=== PATIENT | male | born 1955 | race Caucasian/White ===

== ENCOUNTER → 2018-08-08 09:54 | Outpatient (CLI) | payer OTHER, SELFPAY | PROVIDERS: Family Provider Internal Medicine; PCP Internal Medicine; Visit Provider Urology | DX: N40.0 Benign prostatic hyperplasia without lower urinary tract symptoms (principal) | CPT/HCPCS: 36415; 84153 ==

== ENCOUNTER → 2019-04-21 13:07 | Outpatient (CLI) | payer OTHER, SELFPAY ==
--- NOTE | 2019-04-21 13:09 | DI.US.S_ITS ---
PROCEDURE: US ABDOMEN LIMITED INDICATIONS: Abdominal mass TECHNIQUE: Real-time focused scanning was performed of the abdomen, with image documentation. COMPARISON: None. FINDINGS: Sonographically, no discrete mass is seen. The palpable abnormality appears to correspond to prominent left anterior rib end which is more anterior in position compared to the contralateral non-symptomatic side. Depending on level of clinical suspicion, further assessment with CT could be considered. No focal fluid collection seen. IMPRESSION: No discrete sonographic mass identified. Probable abnormality may correspond to prominent rib. Recommend clinical correlation Dictated by: Catrachito Asher M.D. on 04/21/2019 at 14:28 Approved by: Catrachito Asher M.D. on 04/21/2019 at 14:32
== END ==
PROVIDERS: Family Provider Internal Medicine; PCP Internal Medicine; Visit Provider Registered Nurse
DX: R19.04 Left lower quadrant abdominal swelling, mass and lump (principal)
CPT/HCPCS: 76705

== ENCOUNTER → 2019-08-08 08:16 | Outpatient (CLI) | payer OTHER, SELFPAY ==
[2019-08-08 09:45] LABS: Prostate Specific Antigen 1.73 ng/mL (0.10-4.00)
== END ==
PROVIDERS: Family Provider Internal Medicine; PCP Internal Medicine; Visit Provider Urology
DX: N40.0 Benign prostatic hyperplasia without lower urinary tract symptoms (principal)
CPT/HCPCS: 84153

== ENCOUNTER → 2019-12-05 07:25 | Outpatient (CLI) | payer OTHER, SELFPAY ==
[2019-12-05 08:25] LABS: Alanine Aminotransferase 26 IU/L (<50); Albumin 4.4 g/dL (3.5-5.0); Albumin Globulin Ratio 1.5 (1.0-2.8); Alkaline Phosphatase 53 U/L (38-126); Aspartate Aminotransferase 35 IU/L (17-59); Bilirubin Total 1.3 mg/dL (0.2-1.3); Blood Urea Nitrogen 20 mg/dL (9-20); Calcium 9.7 mg/dL (8.4-10.2); Carbon Dioxide 30 mmol/L (22-32); Chloride 100 mmol/L (98-107); Cholesterol 209 mg/dL (140-199); Estimated Glomerular Filt Rate > 60.0 mL/min (>60); Globulin 2.9 g/dL (1.7-4.1); Glucose 92 mg/dL (80-110); HDL Cholesterol 72 mg/dL (40-60); HEMOLYSIS < 15 (0-50); LDL Cholesterol Calculated 118 mg/dL (<100); Potassium 4.7 mmol/L (3.4-5.1); Sodium 137 mmol/L (137-145); Total Protein 7.3 g/dL (6.3-8.2); Triglycerides 96 mg/dL (35-150)
== END ==
PROVIDERS: PCP Internal Medicine; Visit Provider Internal Medicine
DX: E78.5 Hyperlipidemia, unspecified (principal); Z13.1 Encounter for screening for diabetes mellitus; Z13.220 Encounter for screening for lipoid disorders; Z13.6 Encounter for screening for cardiovascular disorders
CPT/HCPCS: 36415; 80053; 80061

== ENCOUNTER 2020-06-05 12:17 | Emergency (ER) | payer OTHER, SELFPAY ==
[2020-06-05] VITALS (10 sets, daily range): BP systolic 137–205; BP diastolic 79–107; PULSE 66–89; RESP 16–31; TEMP 36.6; O2SAT 96–100; BMI 23.4
--- NOTE | 2020-06-05 12:33 | DI.RAD.S_ITS ---
PROCEDURE: XR CHEST 1V INDICATIONS: chest pain TECHNIQUE: One view of the chest was acquired. COMPARISON: [facility], CHEST 1 VIEW, 07/07/2009, 10:52. [facility], CHEST 2 VIEW, 06/27/2011, 17:06. FINDINGS: Surgical changes and devices: None. Lungs and pleura: Lungs are clear. No pleural effusions or pneumothorax. Interstitial prominence is seen. Low lung volumes are noted. This causes a crowded appearance to the lung markings and limits evaluation. Mediastinum: The cardiac contours are within normal limits. The aorta demonstrates calcification and tortuosity. Bones and chest wall: No suspicious bony lesions. Age-appropriate bony degenerative changes are seen. Overlying soft tissues appear unremarkable. IMPRESSION: Interstitial prominence is seen throughout. The interstitial prominence is nonspecific, yet may be related to pulmonary edema. Differential diagnosis also includes artifact from incomplete inspiratory result. Dictated by: Avinash Burciaga M.D. on 06/05/2020 at 12:32 Approved by: Avinash Burciaga M.D. on 06/05/2020 at 12:33
[2020-06-05 12:45] LABS: Add Manual Diff / Slide Review NO; Basophils Absolute Auto 0 /uL (0-100); Basophils Percent Auto 0.6 % (0-2); Eosinophils Absolute Auto 300 /uL (0-450); Eosinophils Percent Auto 5.2 % (2-4); Hematocrit 43.8 % (41-53); Hemoglobin 14.8 g/dL (13.5-17.5); Lymphocytes Absolute Auto 1800 /uL (1100-4500); Lymphocytes Percent Auto 30.6 % (25-40); Mean Corpuscular HGB Conc 33.8 % (30-36); Mean Corpuscular Hemoglobin 31.2 PG (26-34); Mean Corpuscular Volume 92.3 fL (80-100); Monocytes Absolute Auto 500 /uL (0-900); Monocytes Percent Auto 9.1 % (3-14); Neutrophils Absolute Auto 3300 /uL (1500-7000); Neutrophils Percent Auto 54.5 % (50-75); Platelet Count 230 X10^3/uL (150-400); Red Blood Cell Count 4.75 X10^6/uL (4.5-5.9); Red Cell Distribution Width 13.5 % (11.6-14.8)
[2020-06-05 12:47] LABS: Prothrombin Time 11.1 SECONDS (10.1-12.7)
[2020-06-05 12:49] LABS: PTT Partial Thromboplastin Tim 32 SECONDS (26.4-36.2)
[2020-06-05 12:51] LABS: Alanine Aminotransferase 26 IU/L (<50); Albumin 4.7 g/dL (3.5-5.0); Albumin Globulin Ratio 1.5 (1.0-2.8); Alkaline Phosphatase 56 U/L (38-126); Aspartate Aminotransferase 42 IU/L (17-59); Bilirubin Total 2.1 mg/dL (0.2-1.3); Blood Urea Nitrogen 17 mg/dL (9-20); Calcium 10.1 mg/dL (8.4-10.2); Carbon Dioxide 31 mmol/L (22-32); Chloride 104 mmol/L (98-107); Creatine Kinase 260 U/L (55-170); Estimated Glomerular Filt Rate > 60.0 mL/min (>60); Globulin 3.1 g/dL (1.7-4.1); Glucose 134 mg/dL (80-110); HEMOLYSIS < 15 (0-50); Lipase 107 U/L (23-300); Potassium 4.3 mmol/L (3.4-5.1); Sodium 140 mmol/L (137-145); Total Protein 7.8 g/dL (6.3-8.2)
--- NOTE | 2020-06-05 12:57 | PC.NURSE ---
States he has never had htn. Runs/ swims frequently. Denies headache, neuro changes, visual changes as well as s/s of stroke. BEFAST negative. Moving all extremities equally well. [place]/warm/dry.
[2020-06-05 13:03] LABS: Troponin I < 0.012 ng/mL (0.01-0.034)
[2020-06-05 13:06] LABS: CKMB % Relative Index 1.8 % (1.5-5.0)
--- NOTE | 2020-06-05 14:18 | ED_ITS ---
HPI - General Adult <MCKENZIE Tillman-BC - Last Filed: 06/05/20 14:55> General Chief complaint: Hypertension Stated complaint: High Blood Pressure and Irregular Heart Rate Time Seen by Provider: 06/05/20 12:45 Source: patient Mode of arrival: Ambulatory Limitations: no limitations History of Present Illness HPI narrative: The patient is delightful 64-year-old male nonsmoker with history of GERD who presents with a chief complaint of high blood pressure and irregular heart rate at home. He states he went for his normal 3 mild dog this morning, then wanted to check his blood pressure for monitoring reasons. This is the 1st time he checked his blood pressure at home with a new blood pressure cuff, which she used on his wrist. He denies any chest pain, shortness of breath, cough c ongestion lightheadedness dizziness. He states that overall he feels very well, has no physical complaints. He presents to the emergency department because his home monitor symptoms blood pressure was over 200 systolic. At also said that he has an irregular heart rhythm. He denies any fluttering in his chest, palpitations, swelling of his extremities. He states he is only here to ?be cautious? because of what is home monitor said. He denies any cardiac history, any blood pressure issues, and states overall he feels very well. Related Data Home Medications Medication Instructions Recorded Confirmed No Known Home Medications 06/05/20 06/05/20 Allergies Allergy/AdvReac Type Severity Reaction Status Date / Time Penicillins Allergy Mild BILATERAL Verified 06/05/20 12:40 FEET/HAND SWELLING Review of Systems <MELISSA Tillman - Last Filed: 06/05/20 14:55> Review of Systems Narrative: GENERAL: Denies chills, fatigue, malaise, fever, sweats. HEENT: Denies sinus pain, ear pain, sore throat, difficulty swallowing, dizziness. RESPIRATORY: Denies dyspnea, cough, wheezing, hemoptysis, sputum. CARDIOVASCULAR: See HPI GASTROINTESTINAL: Denies nausea, vomiting, abdominal pain, diarrhea, constipation, melena. : Denies dysuria, frequency, incontinence, hematuria, urinary retention. MUSCULOSKELETAL: denies weakness, joint pain, or bony pain SKIN: Denies rash, skin lesions, or other NEUROLOGIC: Denies weakness, headache, numbness, change in speech, confusion, seizures, incoordination. PSYCHIATRIC: No concerning psychosocial issues. 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) URI (upper respiratory infection) (Acute) Surgical History Status post arthroscopy Status post hernia repair Family History Father Heart disease Hypertension High cholesterol Grandfather Mental health problem Grandmother Colon cancer Mother Age: 90 Diabetes mellitus Heart disease Hypertension High cholesterol Mental health problem Stroke Grandfather Heart disease Grandmother Stroke Social History marital status: number of children: 3 household members: spouse lives independently: Yes caregiver/support person: No housing: house pets and animals: Yes education level: master's degree occupational status: employed current occupational exposures/hazards: No travel history: recent leisure activities: exercise, music, games, reading, volunteer work and other Smoking Status: Never smoker Tobacco: How many years used: 0 second hand exposure: Yes (18 years in the past) alcohol intake: current substance use type: does not use Smoking Status: Never smoker alcohol intake frequency: 0-2 drinks per day Substance Use Type: does not use Exam <PALOMO Tillman - Last Filed: 06/05/20 14:55> Narrative Exam Narrative: GENERAL: This is a well-nourished, well-developed patient, in no acute distress. HEAD: Atraumatic. Normocephalic. No temporal or scalp tenderness. EYES: Pupils equal round and reactive. Extraocular motions intact. No scleral icterus. No injection or drainage. ENT: Nose without bleeding, purulent drainage or septal hematoma. Throat without erythema, tonsillar hypertrophy or exudate. Uvula midline. Airway patent. NECK: Trachea midline. No JVD or lymphadenopathy. Supple, nontender, no meningeal signs. CARDIOVASCULAR: Regular rate and rhythm RESPIRATORY: Clear to auscultation. Breath sounds equal bilaterally. No wheezes, rales, or rhonchi. No cough. No increased respiratory effort. No accessory muscle use. GASTROINTESTINAL: Abdomen soft, non-tender, nondistended. No hepato- splenomegaly, or palpable masses. No guarding. EXTREMITIES: No clubbing, cyanosis, or edema. No joint tenderness, effusion, or edema noted. BACK: Nontender without deformity or crepitance. No flank tenderness. NEURO: AOx3. SKIN: No rash or erythema on visible skin Initial Vital Signs Initial Vital Signs: Vital Signs Temperature 98 F 06/05/20 12:20 Pulse Rate 66 06/05/20 12:20 Respiratory Rate 16 06/05/20 12:20 Blood Pressure 205/107 H 06/05/20 12:20 Pulse Oximetry 100 06/05/20 12:20 <Jorge Julian MD - Last Filed: 06/06/20 19:20> Initial Vital Signs Initial Vital Signs: Vital Signs Temperature 98 F 06/05/20 12:20 Pulse Rate 66 06/05/20 12:20 Respiratory Rate 16 06/05/20 12:20 Blood Pressure 205/107 H 06/05/20 12:20 Pulse Oximetry 100 06/05/20 12:20 Scores <PALOMO Tillman - Last Filed: 06/05/20 14:55> GCS [place] coma scale eye opening: Spontaneous [place] coma scale verbal response: Orientated Ct coma scale motor response: Obey commands [place] coma scale total score: 15 Course <PALOMO Tillman - Last Filed: 06/05/20 14:55> Orders Ordered: ED Orders 06/05/20 12:30 Complete Blood Count AUTO DIFF Stat Comprehensive Metabolic Panel Stat Lipase Stat Partial Thromboplastin Time Stat Prothrombin Time INR Stat Troponin & CK Cardiac Panel Stat 06/05/20 12:33 XR chest 1V Stat EKG-12 Lead Stat Vital Signs Vital signs: Vital Signs - 8 hr 06/05/20 12:20 06/05/20 12:27 06/05/20 12:30 Temperature 98 F Pulse Rate 66 89 84 Respiratory Rate 16 18 20 Blood Pressure 205/107 H 170/87 H Pulse Oximetry 100 99 98 06/05/20 12:45 06/05/20 13:00 06/05/20 13:15 Temperature Pulse Rate 83 80 81 Respiratory Rate 16 22 24 Blood Pressure 159/87 H 158/83 H 148/81 H Pulse Oximetry 97 98 97 06/05/20 13:30 06/05/20 13:45 06/05/20 14:00 Temperature Pulse Rate 76 71 68 Respiratory Rate 24 18 31 H Blood Pressure 154/91 H 147/81 H 137/79 Pulse Oximetry 98 97 97 06/05/20 14:15 Temperature Pulse Rate 70 Respiratory Rate 18 Blood Pressure 147/84 H Pulse Oximetry 96 <Jorge Julian MD - Last Filed: 06/06/20 19:20> Orders Ordered: ED Orders 06/05/20 12:30 Complete Blood Count AUTO DIFF Stat Comprehensive Metabolic Panel Stat Lipase Stat Partial Thromboplastin Time Stat Prothrombin Time INR Stat Troponin & CK Cardiac Panel Stat 06/05/20 12:33 XR chest 1V Stat EKG-12 Lead Stat Vital Signs Vital signs: Vital Signs - 8 hr 06/05/20 12:20 06/05/20 12:27 06/05/20 12:30 Temperature 98 F Pulse Rate 66 89 84 Respiratory Rate 16 18 20 Blood Pressure 205/107 H 170/87 H Pulse Oximetry 100 99 98 06/05/20 12:45 06/05/20 13:00 06/05/20 13:15 Temperature Pulse Rate 83 80 81 Respiratory Rate 16 22 24 Blood Pressure 159/87 H 158/83 H 148/81 H Pulse Oximetry 97 98 97 06/05/20 13:30 06/05/20 13:45 06/05/20 14:00 Temperature Pulse Rate 76 71 68 Respiratory Rate 24 18 31 H Blood Pressure 154/91 H 147/81 H 137/79 Pulse Oximetry 98 97 97 06/05/20 14:15 Temperature Pulse Rate 70 Respiratory Rate 18 Blood Pressure 147/84 H Pulse Oximetry 96 Medical Decision Making <MCKENZIE Tillman-BC - Last Filed: 06/05/20 14:55> Lab Data Result diagrams: 06/05/20 12:30 06/05/20 12:30 Labs: Lab Results 06/05/20 06/05/20 06/05/20 Range/Units 12:30 12:30 12:30 WBC 6.0 (4.5-11.0) X10^3/uL RBC 4.75 (4.5-5.9) X10^6/uL Hgb 14.8 (13.5-17.5) g/dL Hct 43.8 (41-53) % MCV 92.3 (80-100) fL MCH 31.2 (26-34) PG MCHC 33.8 (30-36) % RDW 13.5 (11.6-14.8) % Plt Count 230 (150-400) X10^3/uL Neut % (Auto) 54.5 (50-75) % Lymph % (Auto) 30.6 (25-40) % Mcclain % (Auto) 9.1 (3-14) % Eos % (Auto) 5.2 H (2-4) % Baso % (Auto) 0.6 (0-2) % Neut # (Auto) 3300 (4231-5753) /uL Lymph # (Auto) 1800 (7075-7216) /uL Mcclain # (Auto) 500 (0-900) /uL Eos # (Auto) 300 (0-450) /uL Baso # (Auto) 0 (0-100) /uL PT 11.1 (10.1-12.7) SECONDS INR 1.0 (0.9-1.3) APTT 32 (26.4-36.2) SECONDS Sodium 140 (137-145) mmol/L Potassium 4.3 (3.4-5.1) mmol/L Chloride 104 (98-107) mmol/L Carbon Dioxide 31 (22-32) mmol/L BUN 17 (9-20) mg/dL Creatinine 1.00 (0.66-1.25) mg/dL Estimated GFR > 60.0 (>60) mL/min BUN/Creatinine Ratio 17.0 (6-22) Glucose 134 H (80-110) mg/dL Calcium 10.1 (8.4-10.2) mg/dL Total Bilirubin 2.1 H (0.2-1.3) mg/dL AST 42 (17-59) IU/L ALT 26 (<50) IU/L Alkaline Phosphatase 56 (38-126) U/L Total Creatine Kinase 260 H (55-170) U/L CK-MB (CK-2) 4.60 H (<2.37) ng/mL CK-MB (CK-2) Rel Index 1.8 (1.5-5.0) % Troponin I < 0.012 (0.01-0.034) ng/mL Total Protein 7.8 (6.3-8.2) g/dL Albumin 4.7 (3.5-5.0) g/dL Globulin 3.1 (1.7-4.1) g/dL Albumin/Globulin Ratio 1.5 (1.0-2.8) Lipase 107 (23-300) U/L Imaging Data Chest x-ray: Radiologist's Impression: [address] [place] [id number] XRay Report Signed Patient: Guanako Cotto WMR#: [id number] : 7Acct:[id number] Age/Sex: 64 / MDate of Service: 06/05/20 Loc: ED Accession Number: [id number] Procedure: XR chest 1V Ordering Provider: Jorge Julian MD PROCEDURE: XR CHEST 1V INDICATIONS: chest pain TECHNIQUE: One view of the chest was acquired. COMPARISON: [facility], CHEST 1 VIEW, 07/07/2009, 10:52. [facility], CHEST 2 VIEW, 06/27/2011, 17:06. FINDINGS: Surgical changes and devices: None. Lungs and pleura: Lungs are clear. No pleural effusions or pneumothorax. Interstitial prominence is seen. Low lung volumes are noted. This causes a crowded appearance to the lung markings and limits evaluation. Mediastinum: The cardiac contours are within normal limits. The aorta demonstrates calcification and tortuosity. Bones and chest wall: No suspicious bony lesions. Age-appropriate bony degenerative changes are seen. Overlying soft tissues appear unremarkable. IMPRESSION: Interstitial prominence is seen throughout. The interstitial prominence is nonspecific, yet may be related to pulmonary edema. Differential diagnosis also includes artifact from incomplete inspiratory result. Dictated by: Avinash Burciaga M.D. on 06/05/2020 at 12:32 Approved by: Avinash Burciaga M.D. on 06/05/2020 at 12:33 ECG Data Attestation: I personally reviewed and interpreted this ECG as follows: Interpretation: Sinus rhythm. Ventricular rate 85. P.r. interval 138. QRS 96. viewed by Dr Eliel HERBERT Narrative Medical decision making narrative: The patient is a 64-year-old male nonsmoker who presents with a chief complaint of having an irregular heart rate on his home blood pressure cuff. He is in normal sinus rhythm on his EKG, has been normal on his monitor throughout his emergency department stay. He also had hypertensive blood pressure reading at home after exercise, but his blood pressure quickly normalized in the emergency department to the 140 systolic range. He currently has no physical complaints, and never did have any chest pain or shortness of breath. His EKG has no acute findings, baseline labs have no acute findings. He is noted to have a slightly above elevated bilirubin, but no abdominal pain nausea etcetera. I discussed at length the importance of following up with primary care provider as well as come back to the emergency department for any acute concerns. Given that the patient never had any chest pain back pain etcetera, he feels very well. He states he only came in because his blood pressure cuff said he had an irregular heart rate and his blood pressure was elevated. He is requesting to go home, and I am okay with that. Discussed at length the importance of following with primary care provider, suggested bringing in his home blood pressure cuff to compare to his PCPs office. Discussed at length coming back to the emergency department for any acute concerns such as chest pain shortness of breath etcetera. Patient has no questions or concerns upon discharge and states understanding of return precautions as well as follow-up care. <Jorge Julian MD - Last Filed: 06/06/20 19:20> Lab Data Labs: Lab Results 06/05/20 06/05/20 06/05/20 Range/Units 12:30 12:30 12:30 WBC 6.0 (4.5-11.0) X10^3/uL RBC 4.75 (4.5-5.9) X10^6/uL Hgb 14.8 (13.5-17.5) g/dL Hct 43.8 (41-53) % MCV 92.3 (80-100) fL MCH 31.2 (26-34) PG MCHC 33.8 (30-36) % RDW 13.5 (11.6-14.8) % Plt Count 230 (150-400) X10^3/uL Neut % (Auto) 54.5 (50-75) % Lymph % (Auto) 30.6 (25-40) % [place]cl[place] % (Auto) 9.1 (3-14) % Eos % (Auto) 5.2 H (2-4) % Baso % (Auto) 0.6 (0-2) % Neut # (Auto) 3300 (3993-4037) /uL Lymph # (Auto) 1800 (6603-9387) /uL [place]cl[place] # (Auto) 500 (0-900) /uL Eos # (Auto) 300 (0-450) /uL Baso # (Auto) 0 (0-100) /uL PT 11.1 (10.1-12.7) SECONDS INR 1.0 (0.9-1.3) APTT 32 (26.4-36.2) SECONDS Sodium 140 (137-145) mmol/L Potassium 4.3 (3.4-5.1) mmol/L Chloride 104 (98-107) mmol/L Carbon Dioxide 31 (22-32) mmol/L BUN 17 (9-20) mg/dL Creatinine 1.00 (0.66-1.25) mg/dL Estimated GFR > 60.0 (>60) mL/min BUN/Creatinine Ratio 17.0 (6-22) Glucose 134 H (80-110) mg/dL Calcium 10.1 (8.4-10.2) mg/dL Total Bilirubin 2.1 H (0.2-1.3) mg/dL AST 42 (17-59) IU/L ALT 26 (<50) IU/L Alkaline Phosphatase 56 (38-126) U/L Total Creatine Kinase 260 H (55-170) U/L CK-MB (CK-2) 4.60 H (<2.37) ng/mL CK-MB (CK-2) Rel Index 1.8 (1.5-5.0) % Troponin I < 0.012 (0.01-0.034) ng/mL Total Protein 7.8 (6.3-8.2) g/dL Albumin 4.7 (3.5-5.0) g/dL Globulin 3.1 (1.7-4.1) g/dL Albumin/Globulin Ratio 1.5 (1.0-2.8) Lipase 107 (23-300) U/L Discharge Plan Departure Patient Disposition: Home Clinical Impression: Hypertensive response to exercise, Elevated bilirubin Discharge Date/Time: 06/05/20 14:39 Instructions: DI for High Blood Pressure Activity Restrictions/Additional Instructions: Thank you for trusting us with your care today. Please come back to the emergency department for any acute concerns as I discussed, including concerns about irregular heart rate. Today your blood pressure has normalized very easily in the emergency department to help the range. You have had no evidence of irregular heart rate here on your EKG or on the monitor. As discussed, please follow-up with primary care provider in the next few days. I suggest breaking your home blood pressure cuff in to have it correlated with your primary care providers equipment. Please come back to the emergency department for any acute concerns such as chest pain, shortness of breath, concern of heart attack stroke etcetera Prescriptions: No Action No Known Home Medications RF: 0 Referrals: Jorge Golden MD [Primary Care Provider] -
== END 2020-06-05 14:39 | disposition home or self-care (01) ==
PROVIDERS: Emergency Medicine; Emergency Provider Nurse Practitioner Family; PCP Internal Medicine
DX: I10 Essential (primary) hypertension (principal); R17 Unspecified jaundice; R07.9 Chest pain, unspecified
CPT/HCPCS: 36415; 71045; 80053; 82550; 82553; 83690; 84484; 85025; 85610; 85730; 93005; 99284

== ENCOUNTER → 2020-08-16 10:41 | Outpatient (CLI) | payer OTHER, SELFPAY ==
[2020-08-17 08:28] LABS: PSA Free % 21.4 % (.); PSA, Total 2.2 ng/mL (0.0-4.0)
== END ==
PROVIDERS: PCP Internal Medicine; Referring Provider Urology; Visit Provider Urology
DX: N40.0 Benign prostatic hyperplasia without lower urinary tract symptoms (principal)
CPT/HCPCS: 36415; 84153; 84154

== ENCOUNTER → 2021-02-03 10:03 | Outpatient (CLI) | payer OTHER, SELFPAY ==
[2021-02-03] MEDS: COVID-19 VACC #1, MRNA(MOD) 100 MCG/0.5 ML VIAL IM (10:10)
== END ==
PROVIDERS: PCP Internal Medicine; Visit Provider Internal Medicine
DX: Z23 Encounter for immunization (principal)
CPT/HCPCS: 0011A; 91301

== ENCOUNTER → 2021-03-03 10:00 | Outpatient (CLI) | payer OTHER, SELFPAY ==
[2021-03-03] MEDS: COVID-19 VACC #2, MRNA(MOD) 100 MCG/0.5 ML VIAL IM (10:05)
== END ==
PROVIDERS: PCP Internal Medicine; Visit Provider Internal Medicine
DX: Z23 Encounter for immunization (principal)
CPT/HCPCS: 0012A; 91301

== ENCOUNTER → 2021-03-23 06:50 | Outpatient (CLI) | payer OTHER, SELFPAY ==
[2021-03-23 08:41] LABS: Alanine Aminotransferase 24 IU/L (<50); Albumin 4.4 g/dL (3.5-5.0); Albumin Globulin Ratio 1.6 (1.0-2.8); Alkaline Phosphatase 54 U/L (38-126); Aspartate Aminotransferase 42 IU/L (17-59); BUN Creatinine Ratio 14.4 (6-22); Bilirubin Total 1.1 mg/dL (0.2-1.3); Blood Urea Nitrogen 15 mg/dL (9-20); Calcium 9.7 mg/dL (8.4-10.2); Carbon Dioxide 29 mmol/L (22-32); Chloride 102 mmol/L (98-107); Cholesterol 203 mg/dL (140-199); Estimated Glomerular Filt Rate > 60.0 mL/min (>60); Globulin 2.7 g/dL (1.7-4.1); Glucose 84 mg/dL (80-110); HDL Cholesterol 89 mg/dL (40-60); HEMOLYSIS < 15 (0-50); LDL Cholesterol Calculated 95 mg/dL (<100); Sodium 139 mmol/L (137-145); Total Protein 7.1 g/dL (6.3-8.2); Triglycerides 94 mg/dL (35-150)
== END ==
PROVIDERS: PCP Internal Medicine; Referring Provider Internal Medicine; Visit Provider Internal Medicine
DX: E78.5 Hyperlipidemia, unspecified (principal); K21.9 Gastro-esophageal reflux disease without esophagitis; Q39.4 Esophageal web
CPT/HCPCS: 36415; 80053; 80061

== ENCOUNTER → 2021-09-23 10:59 | Outpatient (CLI) | payer OTHER, SELFPAY ==
[2021-09-23 12:57] LABS: Prostate Specific Antigen 2.28 ng/mL (0.10-4.00)
== END ==
PROVIDERS: PCP Internal Medicine; Referring Provider Urology; Visit Provider Urology
DX: N40.0 Benign prostatic hyperplasia without lower urinary tract symptoms (principal)
CPT/HCPCS: 36415; 84153

== ENCOUNTER → 2022-12-27 15:31 | Outpatient (CLI) | payer OTHER, SELFPAY ==
[2022-12-27 16:30] LABS: Prostate Specific Antigen Scrn 3.69 ng/mL (0.1-4.0)
== END ==
PROVIDERS: PCP Internal Medicine; Referring Provider Internal Medicine; Visit Provider Internal Medicine
DX: Z12.5 Encounter for screening for malignant neoplasm of prostate (principal)
CPT/HCPCS: 36415; G0103

== ENCOUNTER → 2024-01-31 15:31 | Outpatient (CLI) | payer MEDICARE, OTHER, SELFPAY ==
[2024-01-31 18:54] LABS: Prostate Specific Antigen 2.51 ng/mL (0.10-4.00)
== END ==
PROVIDERS: PCP Internal Medicine; Referring Provider Urology; Visit Provider Urology
DX: Z12.5 Encounter for screening for malignant neoplasm of prostate (principal)
CPT/HCPCS: 36415; 84153; G0103

== ENCOUNTER → 2024-02-12 13:37 | Outpatient (CLI) | payer MEDICARE, OTHER, SELFPAY ==
--- NOTE | 2024-02-12 13:38 | DI.MRI.S_ITS ---
PROCEDURE: MR KNEE LT WO CON INDICATIONS: knee pain, left TECHNIQUE: Noncontrast sagittal PD fast spin echo and T2 fast spin echo with fat saturation, sagittal 3-D FLASH with fat saturation; coronal T1 spin echo and PD fast spin echo with fat saturation, and axial PD fast spin echo with fat saturation through the knee. COMPARISON: [facility], MR, LOWER EXTREM. JNT WO CONTRAST, 10/11/2009, 9:55. FINDINGS: Image quality: Excellent. Anterior cruciate ligament: Fluid signal within the anterior cruciate ligament is suspicious for chronic low-grade partial tearing. The bulk of the ligament fibers are intact. Posterior cruciate ligament: Intact. Medial collateral ligament: Mild thickening of the proximal medial collateral ligament without surrounding edema is consistent with remote prior low-grade sprain. Lateral collateral ligament: Intact. Medial meniscus: Complex tearing of the medial meniscus with a radial component at the meniscal body as well as a horizontal oblique component at the posterior horn extending to the inner third of the tibial articular surface. Lateral meniscus: Intact. Medial and lateral tendons: The semimembranosus tendon insertions appear intact. Visualized portions of the pes anserinus tendons appear normal. The popliteus tendon is intact. Iliotibial band appears normal. Anterior structures: The quadriceps and patellar tendons appear intact. No patellar subluxation. No femoral trochlear dysplasia or ventral trochlear prominence. No edema in the infrapatellar fat pad. Bones and cartilage: No bone marrow contusions or fractures. Medial femorotibial cartilage: Focal full-thickness cartilage loss at the central posterior weight-bearing portion of the medial femoral condyle measuring approximately 10 x 5 mm with focal subchondral edema and subchondral osteophyte formation. There is also full-thickness cartilage loss at the central weight-bearing portion of the medial tibial plateau with subchondral edema. Lateral femorotibial cartilage: No focal cartilage defect. Patellofemoral cartilage: No focal cartilage defect. Soft tissues: Moderate to large joint effusion is present. No definite intra-articular loose body. Trace medial popliteal cyst. Mild nonspecific subcutaneous prepatellar edema. No medial popliteal cyst. The musculature surrounding the knee is normal in bulk. IMPRESSION: 1. Complex tearing of the medial meniscus with a radial component at the meniscal body and horizontal oblique component at the posterior horn extending to the inner third of the tibial articular surface. 2. Suspected remote prior low-grade partial tearing of the anterior cruciate ligament. The bulk of the ligament fibers are intact. 3. Remote prior low-grade sprain of the proximal medial collateral ligament. 4. Areas of full-thickness cartilage loss are seen in the weight-bearing portion of the medial femorotibial compartment with subchondral edema and subchondral osteophyte formation. Findings have mildly progressed when compared to the MRI from 10/11/2009. 5. Moderate to large joint effusion. Approved by: Jhoan Moseley M.D. on 02/13/2024 at 12:00
== END ==
PROVIDERS: PCP Internal Medicine; Referring Provider Internal Medicine; Visit Provider Internal Medicine
DX: S83.232A Complex tear of medial meniscus, current injury, left knee, initial encounter (principal); S83.412A Sprain of medial collateral ligament of left knee, initial encounter; M25.562 Pain in left knee; M25.462 Effusion, left knee
CPT/HCPCS: 73721

== ENCOUNTER → 2024-02-27 07:07 | Outpatient (CLI) | payer MEDICARE, OTHER, SELFPAY ==
[2024-02-27 07:58] LABS: Add Manual Diff / Slide Review NO; Basophils Absolute Auto 0 /uL (0-100); Basophils Percent Auto 0.4 % (0-2); Eosinophils Absolute Auto 200 /uL (0-450); Eosinophils Percent Auto 2.9 % (2-4); Hematocrit 43.6 % (41-53); Hemoglobin 14.9 g/dL (13.5-17.5); Lymphocytes Absolute Auto 2200 /uL (1100-4500); Mean Corpuscular HGB Conc 34.1 % (30-36); Mean Corpuscular Hemoglobin 31.4 PG (26-34); Mean Corpuscular Volume 92.3 fL (80-100); Monocytes Absolute Auto 700 /uL (0-900); Monocytes Percent Auto 10.2 % (3-14); Neutrophils Absolute Auto 3700 /uL (1500-7000); Neutrophils Percent Auto 54.5 % (50-75); Platelet Count 236 X10^3/uL (150-400); Red Blood Cell Count 4.73 X10^6/uL (4.5-5.9); Red Cell Distribution Width 13.1 % (11.6-14.8); White Blood Cell Count 6.8 X10^3/uL (4.5-11.0)
[2024-02-27 08:38] LABS: Alanine Aminotransferase 32 IU/L (<50); Albumin 4.4 g/dL (3.5-5.0); Albumin Globulin Ratio 1.7 (1.0-2.8); Alkaline Phosphatase 59 U/L (38-126); Aspartate Aminotransferase 39 IU/L (17-59); BUN Creatinine Ratio 15.4 (6-22); Blood Urea Nitrogen 18 mg/dL (9-20); Calcium 9.6 mg/dL (8.4-10.2); Carbon Dioxide 30 mmol/L (22-32); Chloride 104 mmol/L (98-107); Cholesterol 213 mg/dL (140-199); Estimated Glomerular Filt Rate > 60 mL/min (>60); Globulin 2.6 g/dL (1.7-4.1); Glucose 96 mg/dL (80-110); HDL Cholesterol 82 mg/dL (40-60); HEMOLYSIS < 15 (0-50); LDL Cholesterol Calculated 113 mg/dL (<100); Potassium 4.3 mmol/L (3.4-5.1); Sodium 138 mmol/L (137-145); Triglycerides 89 mg/dL (35-150)
[2024-02-27 09:03] LABS: TSH w/ Reflex to FT4 3.08 uIU/mL (0.47-4.68)
== END ==
LOC: LAB 07:08
PROVIDERS: PCP Internal Medicine; Referring Provider Internal Medicine; Visit Provider Internal Medicine
DX: Z13.6 Encounter for screening for cardiovascular disorders (principal); D64.9 Anemia, unspecified; Z13.1 Encounter for screening for diabetes mellitus; Z13.220 Encounter for screening for lipoid disorders; K21.9 Gastro-esophageal reflux disease without esophagitis; K44.9 Diaphragmatic hernia without obstruction or gangrene
CPT/HCPCS: 36415; 80053; 80061; 84443; 85025

== ENCOUNTER → 2024-05-30 11:28 | Outpatient (CLI) | payer MEDICARE, OTHER, SELFPAY ==
--- NOTE | 2024-05-30 11:29 | DI.RAD.S_ITS ---
PROCEDURE: XR HAND LT MIN 3V INDICATIONS: Dislocation of finger TECHNIQUE: For views of the hand(s) acquired. COMPARISON: [facility], , HAND 3V LEFT, 12/29/2013, 15:23. FINDINGS: Bones: No fractures or dislocations. Carpal bones are normally aligned. No suspicious bony lesions. There is volar displacement of the 5th proximal interphalangeal joint. Soft tissues: There is soft tissue swelling in the mid 5th digit. IMPRESSION: There is volar displacement of the 5th proximal interphalangeal joint. Dictated by: Jase Prakash M.D. on 05/30/2024 at 14:58 Approved by: Jase Prakash M.D. on 05/30/2024 at 15:05
== END ==
PROVIDERS: PCP Internal Medicine; Referring Provider Internal Medicine; Visit Provider Internal Medicine
DX: S63.287A Dislocation of proximal interphalangeal joint of left little finger, initial encounter (principal); X58.XXXA Exposure to other specified factors, initial encounter
CPT/HCPCS: 73130